=== PATIENT | female | born 1955 | race Caucasian/White ===

== ENCOUNTER 2024-07-10 19:50 | Emergency (ER) | payer BC, OTHER ==
[2024-07-10] MEDS: fentaNYL (PF) 50 MCG/ML 2 ML AMP IVP STA (19:59)
[2024-07-10 20:03] LABS: Glucose,Whole Blood 244 mg/dL (70-110)
[2024-07-10] MEDS: SODIUM CHLORIDE 0.9% 1,000 ML IV STA (20:07)
--- NOTE | 2024-07-10 20:16 | ED ---
Trauma HPI - General Chief Complaint: Trauma Stated Complaint: L side injury, [facility] Time Seen by Provider: 07/10/24 19:54 Source: patient, EMS, RN notes reviewed, old records reviewed Mode of arrival: EMS Limitations: altered mental status, physical limitation - History of Present Illness Initial Comments: This is a 68-year-old presenting in significant distress patient presents by EMS as a level 1 priority 1 trauma, patient hypotensive in the field and brought in remaining hypotensive here in the emergency room. Patient sustained crush injury, patient complains of severe shortness of breath. Patient got stuck in the door of a furnace a significant heavy sliding door and was caught in between it for up to 3 minutes. Patient states she cannot breathe MD Complaint: injury, pain -: minutes(s) Location: chest, back, abdomen Severity scale (1-10): 10 Consistency: constant Context: work related injury, Machine or Tool Related Injury Associated Symptoms: chest pain, difficulty breathing Treatments Prior to Arrival: IV/IO, oxygen - Related Data Allergies Allergy/AdvReac Type Severity Reaction Status Date / Time codeine AdvReac Rash/Hives Verified 07/10/24 20:01 Review of Systems ROS Statement: Those systems with pertinent positive or pertinent negative responses have been documented in the HPI. ROS Other: All systems not noted in ROS Statement are negative. Past Medical History Past Medical History: Unable to Obtain History of Any Multi-Drug Resistant Organisms: None Reported Past Surgical History: Unable to Obtain Past Psychological History: No Psychological Hx Reported Smoking Status: Unknown if ever smoked General Exam - General Exam Comments Initial Comments: GCS of 15 Airway is patent Trachea is midline Breath sounds are diminished bilaterally more important more diminished on the right than left No other signs of traumatic injury Limitations: no limitations, altered mental status, physical limitation (pain) General appearance: alert, in no apparent distress, anxious, in distress Head exam: Present: atraumatic, normocephalic, normal inspection Eye exam: Present: normal appearance, PERRL, EOMI. Absent: scleral icterus, conjunctival injection, periorbital swelling ENT exam: Present: normal exam, mucous membranes moist Neck exam: Present: normal inspection. Absent: tenderness, meningismus, lymphadenopathy Respiratory exam: Present: respiratory distress, accessory muscle use, decreased breath sounds, prolonged expiratory. Absent: normal lung sounds bilaterally, wheezes, rales, rhonchi, stridor Cardiovascular Exam: Present: normal rhythm, tachycardia, normal heart sounds. Absent: systolic murmur, diastolic murmur, rubs, gallop, clicks GI/Abdominal exam: Present: soft, normal bowel sounds. Absent: distended, tenderness, guarding, rebound, rigid Extremities exam: Present: normal inspection, full ROM, normal capillary refill. Absent: tenderness, pedal edema, joint swelling, calf tenderness Back exam: Present: normal inspection Neurological exam: Present: alert, oriented X3, CN II-XII intact Psychiatric exam: Present: normal affect, normal mood Skin exam: Present: warm, dry, intact, normal color. Absent: rash Course Vital Signs 07/10/24 07/10/24 07/10/24 19:56 21:30 21:43 Temperature 97.5 F L Pulse Rate 134 H 110 H 91 Respiratory 24 20 20 Rate Blood Pressure 74/48 116/79 148/90 O2 Sat by Pulse 100 100 100 Oximetry - Reevaluation(s) Reevaluation #1: 07/10/24 21:32 Medical records reviewed Level 1 trauma activation on arrival to the ER Reevaluation #2: 07/10/24 21:33 Level 1 activation based on low blood pressure persistent systolic blood pressure in the 70s Tachycardia 130s Patient blood pressure improved with IV fluid resuscitation here in the ER Patient started on transeexamic acid Patient given massive transfusion protocol Reevaluation #3: 07/10/24 21:33 Patient informed of results questions answered Reevaluation #4: Was pt. sent in by a medical professional or institution (, PA, COMPUTER NETWORK SPECIALIST, urgent care, hospital, or [facility]...) When possible be specific @ -no Did you speak to anyone other than the patient for history (EMS, parent, family, police, friend...)? What history was obtained from this source @ -no Did you review nursing and triage notes (agree or disagree)? Why? @ -agree Are old charts reviewed (outside hosp., previous admission, EMS record, old EKG, old radiological studies, urgent care reports/EKG's, [facility] records)? Report findings @ -yes Differential Diagnosis (chest pain, altered mental status, abdominal pain women, abdominal pain men, vaginal bleeding, weakness, fever, dyspnea, syncope, headache, dizziness, GI bleed, back pain, seizure, CVA, palpatations, mental health, musculoskeletal)? @ -prior EKG interpreted by me (3pts min.). @ -yes X-rays interpreted by me (1pt min.). @ -yes negative for acute disease CT interpreted by me (1pt min.). @ -no U/S interpreted by me (1pt. min.). @ -no What testing was considered but not performed or refused? (CT, X-rays, U/S, labs)? Why? @ -none What meds were considered but not given or refused? Why? @ -none Did you discuss the management of the patient with other professionals (professionals i.e. Dr., PA, COMPUTER NETWORK SPECIALIST, lab, RT, psych nurse, social services designee, baffle installer, teacher, animal park code enforcement officer, mental health case manager)? Give summary @ -no Was smoking cessation discussed for >3mins.? @ -no Was critical care preformed (if so, how long)? @ -no Were there social determinants of health that impacted care today? How? (Homelessness, low income, unemployed, alcoholism, drug addiction, transportation, low edu. Level, literacy, decrease access to med. care, custodial, rehab)? @ -none Was there de-escalation of care discussed even if they declined (Discuss DNR or withdrawal of care, Hospice)? DNR status @ -no What co-morbidities impacted this encounter? (DM, HTN, Smoking, COPD, CAD, Cancer, CVA, ARF, Chemo, Hep., AIDS, mental health diagnosis, sleep apnea, morbid obesity)? @ -none Was patient admitted / discharged? Hospital course, mention meds given and route, prescriptions, significant lab abnormalities, going to OR and other pert inent info. @ - Undiagnosed new problem with uncertain prognosis? @ -no Drug Therapy requiring intensive monitoring for toxicity (Heparin, Nitro, Insulin, Cardizem)? @ -no Were any procedures done? @ -no Diagnosis/symptom? @ - Acute, or Chronic, or Acute on Chronic? @ -Acute Uncomplicated (without systemic symptoms) or Complicated (systemic symptoms)? @ -Complicated Side effects of treatment? @ -no Exacerbation, Progression, or Severe Exacerbation? @ -exacerbation Poses a threat to life or bodily function? How? (Chest pain, USA, CA, pneumonia, PE, COPD, DKA, ARF, appy, cholecystitis, CVA, Diverticulitis, Homicidal, Suicidal, threat to staff... and all critical care pts) @ -yes - Consultations Consultation #1: Spoke with Dr. Soto trauma surgeon, evaluated at bedside Consultation #2: spoke cindy Maravilla who accept transfer Procedures - Chest Tube Insertion Consent Obtained: verbal consent Side of Procedure: left, right Indication: Pneumothorax Placed on monitor/pulse oximetry: Yes Site Prep: Chloroprep Local Anesthesia: Lidocaine 1%, With Epi Insertion Site: 5th Intercostal Space, Midaxillary Scalpel: #10 Open into Pleural Space Using: Hemostats Tube Size (Estonian): 32 (Left), 36 (Right) Returns: Air (Left), Blood (Bilateral) Sutured in Place: Yes Type of Suture: Silk (0) Dressing Applied: Petroleum Gauze Attached to Suction: Yes Type of Suction: Pleuravac Repeat X-ray Results: Lung Inflated Patient Tolerated Procedure: well Complications: Pain - FAST Exam Fluid in Morison's pouch: No Fluid in Splenorenal Junction: No Fluid around bladder, Transverse view: No Fluid around bladder, Sagittal view: No Limited Echocardiogram view: parasternal Fluid in Pericardial Sac: No Gross Wall Motion Abnormality: No Study normal for this patient: Yes Images saved for further review: Yes Medical Decision Making - Medical Decision Making 68 female coming in for crush injury, patient was caught in between the door of a furnace, question injury, left-sided rib fractures, right and left-sided p neumothorax, significant right hemothorax left-sided hemothorax, bilateral chest tubes have been placed patient is in no respiratory distress blood pressure is improving patient is given transfusion here in the ER and TXA and will be transferred for definitive care cardiothoracic surgery - Lab Data Result diagrams: 07/10/24 20:16 Lab Results 07/10/24 07/10/24 Range/Units 20:00 20:16 WBC 24.8 H (3.8-10.6) k/uL RBC 5.54 H (3.80-5.40) m/uL Hgb 13.6 (11.4-16.0) gm/dL Hct 44.9 (34.0-46.0) % MCV 81.1 (80.0-100.0) fL MCH 24.5 L (25.0-35.0) pg MCHC 30.2 L (31.0-37.0) g/dL RDW 20.2 H (11.5-15.5) % Plt Count 250 (150-450) k/uL MPV 7.7 Neutrophils % 83 % Lymphocytes % 12 % Monocytes % 4 % Eosinophils % 1 % Basophils % 0 % Neutrophils # 20.6 H (1.3-7.7) k/uL Lymphocytes # 2.9 (1.0-4.8) k/uL Monocytes # 0.9 (0-1.0) k/uL Eosinophils # 0.1 (0-0.7) k/uL Basophils # 0.1 (0-0.2) k/uL Hypochromasia Marked Anisocytosis Moderate Microcytosis Slight POC Glucose (mg/dL) 244 H (70-110) mg/dL POC Glu Landscape Artist ID Luis Miguel Lowe - EKG Data -: EKG Interpreted by Me (EKG is sinus tachycardia 139 WA 144 QRS 71 QTc 358) - Radiology Data Radiology results: report reviewed (CT brain C-spine chest abdomen pelvis po sitive right hemothorax left pneumothorax left rib fractures), image reviewed Critical Care Time Critical Care Time: Yes Total Critical Care Time: 95 Disposition Clinical Impression: Hematoma of right chest wall, Pneumothorax, left, Left rib fracture, Multiple rib fractures, Lumbar compression fracture Disposition: OTHER INSTITUTION NOT DEFINED Condition: Serious Is patient prescribed a controlled substance at d/c from ED?: No Referrals: None,Stated [Primary Care Provider] - 1-2 days Time of Disposition: 21:30
[2024-07-10] MEDS: MIDAZOLAM 1 MG/ML 5 ML VIAL IV STA (20:49)
[2024-07-10] MEDS: LIDOCAINE 1%-EPI 1:100,000 20 ML VIAL SQ STA (20:50)
[2024-07-10] MEDS: TRANEXAMIC 1,000 MG/100ML-NACL 1,000 MG in SALINE 1 100ML.BAG IV STA (20:54)
--- NOTE | 2024-07-10 21:08 | XR ---
EXAMINATION TYPE: XR chest 1V portable DATE OF EXAM: 07/10/2024 8:09 PM CLINICAL INDICATION:Female, 68 years old with history of trauma; [facility] COMPARISON: Chest radiographs from TECHNIQUE: XR chest 1V portable Frontal view of the chest. FINDINGS: Bilateral small pneumothoraces are seen left greater than right. The mediastinal structures are not s ignificantly shifted. There is a hazy and patchy airspace opacity within the right lower lobe. The ca rdiac silhouette is partially obscured and appears mildly enlarged. Left-sided rib deformities are bazzi ggested. IMPRESSION: 1. Bilateral small pneumothoraces left greater than right. 2. Hazy and patchy airspace opacities are seen within the right lung may relate to pleural effusion w ith possible contusion. 3. Suggested left-sided rib fractures. [facility], , 07/10/2024 9:06 PM
[2024-07-10] MEDS: TRANEXAMIC ACID 1,000 MG in SODIUM CHLORIDE 0.9% 250 ML IV ONE (21:10)
--- NOTE | 2024-07-10 21:38 | CT ---
EXAMINATION TYPE: CT ChestAbdPelvis w con CT DLP: 2427.1 mGycm, Automated exposure control for dose reduction was used. DATE OF EXAM: 07/10/2024 8:52 PM COMPARISON: None. CLINICAL INDICATION:Female, 68 years old with history of trauma; [facility], Patient crushed by furnace door , dyspnea, hypotensive. Technique: CT ChestAbdPelvis w con; Multiple axial images were obtained. Two-dimensional coronal and sagittal reconstructions were obtained. Contrast used:100 mL of Isovue 300 with IV Contrast, Oral contrast used: without Oral Contrast Findings: Motion artifact on exam degrades images limiting evaluation. CHEST: LUNGS/ PLEURA: Small left pneumothorax. There is a moderate-sized right pleural effusion with some ar eas of attenuation likely related to complex fluid. There are areas of groundglass changes in the geo ateral lungs likely on the basis of contusions. AIRWAY: Patent . HEART: Size within normal limits. MEDIASTINUM: No gross evidence of adenopathy. Large hiatal hernia is seen with fluid noted in the eso phagus. There are a few foci of gas seen within the area of the mediastinum. VASCULATURE: No aortic aneurysm. MUSCULOSKELETAL: Multiple posterior lateral nondisplaced fractures involving the right-sided ribs at the articulation with the thoracic spine. Nondisplaced anterolateral seventh rib fracture on the righ t.. There are multiple minimally displaced anterior lateral left-sided rib fractures. There is a mini siobhan displaced right scapular fracture. SOFT TISSUES/LYMPH NODES: Bilateral chest wall foci of subcutaneous emphysema. Some foci of gas is se en tracking in the spinal canal likely from the adjacent thoracic injury. LOWER NECK: No significant findings. ABDOMEN: ABDOMEN LIVER: Unremarkable GALLBLADDER AND BILE DUCTS: Unremarkable. PANCREAS: Unremarkable. SPLEEN: Unremarkable. ADRENAL GLANDS: Unremarkable. KIDNEYS AND URETERS: Right renal cyst is seen with simple fluid attenuation measuring 2.8 cm. No evid ence of hydronephrosis or renal calculus. The ureters are unremarkable. PELVIS BLADDER: Inferior aspect of the urinary bladder is seen prolapsing into the vaginal area. REPRODUCTIVE: Urinary bladder prolapse into the vagina is seen. ABDOMEN & PELVIS STOMACH AND BOWEL: Large hiatal hernia is noted.Small bowel is of normal caliber. No evidence of marilee l obstruction. PERITONEUM: No evidence of pneumoperitoneum or free fluid. VASCULATURE: No evidence of aortic aneurysm. MUSCULOSKELETAL: Age indeterminate compression deformity of the L5 vertebral body superior endplate w ith anterior wedging. LYMPH NODES: No gross evidence for lymphadenopathy. SOFT TISSUE/ABDOMINAL WALL: Unremarkable IMPRESSION: 1. Small left pneumothorax with a few foci of pneumomediastinum appreciated. 2. Right moderate pleural effusion with some areas of attenuation suggestive of complex possible hemo rrhagic fluid. 3. Multiple bilateral acute minimally displaced rib fractures with a minimally displaced right scapul ar fracture appreciated. 4. Groundglass changes in the bilateral visualized lungs may be on the basis of contusions. 5. Subcutaneous emphysema along the bilateral chest wall. 6. Large hiatal hernia. 7. Age indeterminate compression deformity of the L5 vertebral body with anterior wedging. Findings discussed with Dr. Almaguer over the phone at 9:10 PM on 07/10/[address] Rodriguez. [facility], , 07/10/2024 9:36 PM
--- NOTE | 2024-07-10 21:44 | CT ---
EXAMINATION TYPE: CT brain cspine wo con CT DLP: 2427.1 mGycm, Automated exposure control for dose reduction was used. DATE OF EXAM: 07/10/2024 8:48 PM COMPARISON: CT chest abdomen pelvis from same day. CLINICAL INDICATION:Female, 68 years old with history of crush trauma; P1 trauma Patient crushed by f urnace door, dyspnea, hypotensive. TECHNIQUE: Brain: Multiple axial CT images of the brain were obtained without IV contrast. Cspine: Axial CT images from the skull base to the inferior aspect of T2 we obtained without intraven ous contrast. Coronal and sagittal reformatted images were also reviewed. . FINDINGS: Brain: Extra-axial spaces: No abnormal extra-axial fluid collections. Ventricular system: Within normal limits Cerebral parenchyma: No acute intraparenchymal hemorrhage or mass effect. The mancini-white junction is well differentiated. Cerebellum: Unremarkable. Mass effect: No evidence of midline shift. Intracranial vasculature: unremarkable Soft tissues: Normal. Calvarium/osseous structures: No depressed skull fracture. Paranasal sinuses and mastoid air cells: Clear. Visualized orbits: Orbital contents are intact. Cervical spine: Fracture: No acute fractures. Osseous structures: Mild multilevel degenerative changes. Vertebral alignment: Within normal limits. Spinal canal/Neural Foramina: No evidence of significant spinal canal narrowing. No evidence for sign ificant neural foraminal stenosis. Few foci of air is seen tracking into the spinal canal from the le ft pneumothorax. Neck soft tissues: Few foci of subcutaneous air is seen likely communicating from the nearby thoracic injury. Other: The airway is patent. Partially visualized left pneumothorax and right pleural effusion. Parti ally visualized rib fractures. Please see the dedicated CT chest report for further details. IMPRESSION: No acute intracranial process. No evidence of acute cervical spine fracture. Multiple other findings are seen in the upper thorax better characterized on CT chest abdomen pelvis from same day. Findings discussed with Dr. Almaguer over the phone at 9:10 PM on 07/10/[address] Rodriguez. [facility], , 07/10/2024 9:42 PM
[2024-07-10] MEDS: HYDROmorphone 1 MG/ML 1 ML SYRINGE IVP STA (21:45)
[2024-07-10 22:26] LABS: Anisocytosis Moderate; Basophils # (A) 0.1 k/uL (0-0.2); Basophils % (A) 0 %; Eosinophils # (A) 0.1 k/uL (0-0.7); Eosinophils % (A) 1 %; HCT 44.9 % (34.0-46.0); HGB 13.6 gm/dL (11.4-16.0); Hypochromasia Marked; Lymphocytes # (A) 2.9 k/uL (1.0-4.8); Lymphocytes % (A) 12 %; MCH 24.5 pg (25.0-35.0); MCHC 30.2 g/dL (31.0-37.0); MCV 81.1 fL (80.0-100.0); Mean Platelet Volume 7.7; Microcytosis Slight; Monocytes # (A) 0.9 k/uL (0-1.0); Monocytes % (A) 4 %; Neutrophils # (A) 20.6 k/uL (1.3-7.7); Neutrophils % (A) 83 %; Platelet Count 250 k/uL (150-450); RBC 5.54 m/uL (3.80-5.40); RDW 20.2 % (11.5-15.5); WBC 24.8 k/uL (3.8-10.6)
[2024-07-10] MEDS: ONDANSETRON 4 MG/2 ML VIAL IVP STA (22:40)
[2024-07-10 22:45] LABS: INR 1.1 (<1.2); Partial Thromboplastin Time 22.2 sec (22.0-30.0); Prothrombin Time 12.4 sec (10.0-12.5)
[2024-07-10 22:54] LABS: ALT 26 U/L (4-34); African American GFR (CKD) 90 (>60 ml/min/1.73 sqM); Albumin 3.2 g/dL (3.5-5.0); Alcohol <10 mg/dL; Anion Gap 10 mmol/L; Blood Urea Nitrogen 17 mg/dL (7-17); Calcium 7.7 mg/dL (8.4-10.2); Carbon Dioxide 19 mmol/L (22-30); Chloride 108 mmol/L (98-107); Glucose 155 mg/dL (74-99); Non-African American GFR(CKD) 78 (>60 ml/min/1.73 sqM); Sodium 137 mmol/L (137-145); Total Bilirubin 0.5 mg/dL (0.2-1.3); Total Protein 5.8 g/dL (6.3-8.2)
[2024-07-10 22:55] LABS: AST 57 U/L (14-36); Creatine Kinase 1445 U/L (30-135); Potassium 3.6 mmol/L (3.5-5.1)
[2024-07-10 22:56] LABS: Alkaline Phosphatase 56 U/L (38-126)
--- NOTE | 2024-07-10 23:01 | XR ---
EXAMINATION TYPE: XR chest 1V confirm line plcmt DATE OF EXAM: 07/10/2024 9:40 PM CLINICAL INDICATION:Female, 68 years old with history of bilat chest tubes; H COMPARISON: Chest radiograph and CT chest abdomen pelvis from same day. TECHNIQUE: XR chest 1V confirm line plcmt Frontal view of the chest. FINDINGS: Previously seen left pneumothorax is less conspicuous on this exam. Bilateral chest wall emphysema. L eft-sided rib fractures are better visualized on the CT in reference. There is interval improvement o f the hazy opacification involving the right hemithorax when compared to the last chest x-ray. Cardia c silhouette is mildly enlarged and again partially obscured. Lines/Tubes: Interval placement of bilateral chest tubes. IMPRESSION: 1. Interval placement of bilateral chest tubes with less conspicuous appearance of the previously see n left pneumothorax. 2. Decrease in previously seen right lung opacification. [facility], , 07/10/2024 10:58 PM
--- NOTE | 2024-07-10 23:17 | XR ---
EXAMINATION TYPE: XR pelvis AP view DATE OF EXAM: 07/10/2024 8:09 PM CLINICAL INDICATION:Female, 68 years old with history of Trauma; [facility] COMPARISON: CT chest abdomen and pelvis from the same day TECHNIQUE: XR pelvis AP view, examined in a single projection. FINDINGS: No acute fracture or dislocation. Radiodensity overlying the left femur is external to the patient. Mild degenerative changes of the bony pelvis. IMPRESSION: No acute osseous pathology. [facility], , 07/10/2024 11:15 PM
[2024-07-11 03:35] VITALS: BP 160/91; PULSE 88; RESP 20; TEMP 97.6
--- NOTE | 2024-07-11 07:57 | P.GSCN ---
History of Present Illness Consult date: 07/10/24 Reason for Consult: Crush injury, level 1 trauma activation History of present illness: This a 68-year-old female who had an industrial accident. Patient apparently was stuck in a metal sliding furnace door. The patient was apparently crushed along her chest in the door. States the patient was pinned for approximately 3 minutes prior to extrication. Patient has complaints of significant chest wall and back pain. She has some shortness of breath. The parity 1 activation was called due to hypotension in the field Past Medical History Past Medical History: Unable to Obtain History of Any Multi-Drug Resistant Organisms: None Reported Past Surgical History: Unable to Obtain Past Psychological History: No Psychological Hx Reported Smoking Status: Unknown if ever smoked Medications and Allergies Allergies Allergy/AdvReac Type Severity Reaction Status Date / Time codeine AdvReac Rash/Hives Verified 07/10/24 20:01 Surgical - Exam Vital Signs Pulse Resp BP Pulse Ox 134 H 24 74/48 100 07/10/24 19:56 07/10/24 19:56 07/10/24 19:56 07/10/24 19:56 Patient Seen Date: 07/10/24 Patient Seen Time: 20:25 - General well developed, moderate distress - Eyes PERRL - ENT normal pinna, normal nares, normal mucosa - Neck no masses, trachea midline - Respiratory Shallow breathing due to pain There is bruising along her breast and sternum - Cardiovascular Rhythm: regular - Abdomen Abdomen: soft, non tender - Genitourinary normal external genitalia - Rectum Rectum: no hemorrhoids - Integumentary Abrasion along chest wall - Neurologic normal coordination, normal sensation - Musculoskeletal Tenderness on palpation along spine to the T4-5 level. - Psychiatric oriented to time, oriented to person Results - Labs 07/10/24 20:16 07/10/24 20:16 Abnormal Lab Results - Last 24 Hours (Table) 07/10/24 07/10/24 07/10/24 Range/Units 20:00 20:16 20:16 WBC 24.8 H (3.8-10.6) k/uL RBC 5.54 H (3.80-5.40) m/uL MCH 24.5 L (25.0-35.0) pg MCHC 30.2 L (31.0-37.0) g/dL RDW 20.2 H (11.5-15.5) % Neutrophils # 20.6 H (1.3-7.7) k/uL Chloride 108 H (98-107) mmol/L Carbon Dioxide 19 L (22-30) mmol/L Glucose 155 H (74-99) mg/dL POC Glucose (mg/dL) 244 H (70-110) mg/dL Plasma Lactic Acid Librado (0.7-2.0) mmol/L Calcium 7.7 L (8.4-10.2) mg/dL AST 57 H (14-36) U/L Creatine Kinase 1445 H* (30-135) U/L Troponin I (0.000-0.034) ng/mL Total Protein 5.8 L (6.3-8.2) g/dL Albumin 3.2 L (3.5-5.0) g/dL Crossmatch 07/10/24 07/10/24 07/10/24 Range/Units 20:16 20:16 21:00 WBC (3.8-10.6) k/uL RBC (3.80-5.40) m/uL MCH (25.0-35.0) pg MCHC (31.0-37.0) g/dL RDW (11.5-15.5) % Neutrophils # (1.3-7.7) k/uL Chloride (98-107) mmol/L Carbon Dioxide (22-30) mmol/L Glucose (74-99) mg/dL POC Glucose (mg/dL) (70-110) mg/dL Plasma Lactic Acid Librado 3.5 H* (0.7-2.0) mmol/L Calcium (8.4-10.2) mg/dL AST (14-36) U/L Creatine Kinase (30-135) U/L Troponin I 0.090 H* (0.000-0.034) ng/mL Total Protein (6.3-8.2) g/dL Albumin (3.5-5.0) g/dL Crossmatch See Detail Diabetes panel 07/10/24 Range/Units 20:16 Sodium 137 (137-145) mmol/L Potassium 3.6 (3.5-5.1) mmol/L Chloride 108 H (98-107) mmol/L Carbon Dioxide 19 L (22-30) mmol/L BUN 17 (7-17) mg/dL Creatinine 0.79 (0.52-1.04) mg/dL Glucose 155 H (74-99) mg/dL Calcium 7.7 L (8.4-10.2) mg/dL AST 57 H (14-36) U/L ALT 26 (4-34) U/L Alkaline Phosphatase 56 (38-126) U/L Total Protein 5.8 L (6.3-8.2) g/dL Albumin 3.2 L (3.5-5.0) g/dL Calcium panel 07/10/24 Range/Units 20:16 Calcium 7.7 L (8.4-10.2) mg/dL Albumin 3.2 L (3.5-5.0) g/dL Pituitary panel 07/10/24 Range/Units 20:16 Sodium 137 (137-145) mmol/L Potassium 3.6 (3.5-5.1) mmol/L Chloride 108 H (98-107) mmol/L Carbon Dioxide 19 L (22-30) mmol/L BUN 17 (7-17) mg/dL Creatinine 0.79 (0.52-1.04) mg/dL Glucose 155 H (74-99) mg/dL Calcium 7.7 L (8.4-10.2) mg/dL Adrenal panel 07/10/24 Range/Units 20:16 Sodium 137 (137-145) mmol/L Potassium 3.6 (3.5-5.1) mmol/L Chloride 108 H (98-107) mmol/L Carbon Dioxide 19 L (22-30) mmol/L BUN 17 (7-17) mg/dL Creatinine 0.79 (0.52-1.04) mg/dL Glucose 155 H (74-99) mg/dL Calcium 7.7 L (8.4-10.2) mg/dL Total Bilirubin 0.5 (0.2-1.3) mg/dL AST 57 H (14-36) U/L ALT 26 (4-34) U/L Alkaline Phosphatase 56 (38-126) U/L Total Protein 5.8 L (6.3-8.2) g/dL Albumin 3.2 L (3.5-5.0) g/dL - Imaging CT scan - abdomen: report reviewed (CT chest abdomen pelvis reviewed. Patient has a right hemo-/pneumothorax and a left pneumothorax. There is also a hiatal hernia present. It is unsure if this is traumatic in nature. There is a right scapular fracture multiple bilateral minimally displaced rib fractures. T5 fracture) Assessment and Plan Plan: Crush injury of chest. Patient had bilateral chest tubes placed. I supervised Dr. Ford placing chest tubes. MBT was initiated. The patient will be st abilized for transfer.
== END 2024-07-10 22:42 | disposition other institution (70) ==
LOC: EC 19:50
DX: S20.211A Contusion of right front wall of thorax, initial encounter (principal); S22.42XA Multiple fractures of ribs, left side, initial encounter for closed fracture; S27.0XXA Traumatic pneumothorax, initial encounter; S32.008A Other fracture of unspecified lumbar vertebra, initial encounter for closed fracture; Z88.5 Allergy status to narcotic agent; W23.0XXA Caught, crushed, jammed, or pinched between moving objects, initial encounter; Y99.0 Civilian activity done for income or pay
CPT/HCPCS: 99291; 96365; 96366; 96375; 36430; 32551; 36415; 86900; 86901; 80053; 82550; 83605; 84484; 85025; 85610; 85730; 86850; 86920; 80320; 72170; 71045; 72125; 70450; 71260; 74177; G0390; P9016; P9059; J2405; J2250; J3010; J1171; Q9967